=== PATIENT | male | born 1940 | race Caucasian/White ===

== ENCOUNTER 2018-03-07 04:27 | Inpatient (IN) ==
[2018-03-02 15:21] LABS: Appearance,Urine CLEAR; Bilirubin,Urine NEG (NEG); Color,Urine YELLOW; Glucose,Urine (UA) NEGATIVE (NEG); Leukocyte Esterase,Urine NEG /uL (NEG); Protein,Urine NEG (NEG); Specific Gravity,Urine 1.011 (1.000-1.035); Urine Blood NEG mg/dL (<0.03); Urobilinogen,Urine NEG (NEG)
[2018-03-02 15:52] LABS: Basophils # (Auto) 0 K/mcL (0.0-0.3); Basophils % (Auto) 0.1 % (0.0-2.0); Eosinophils # (Auto) 0 K/mcL (0.0-0.7); Eosinophils % (Auto) 0.2 % (0.0-7.0); Granulocytes % (Auto) 91.1 % (38.0-78.0); Lymphocytes # (Auto) 0.8 K/mcL (1.5-4.8); Mean Cell Volume 91.6 fL (80.0-100.0); Mean Corpuscular HGB Conc 33.7 g/dL (31.0-36.0); Mean Corpuscular Hemoglobin 30.9 pg (26.0-34.0); Monocytes # (Auto) 0.6 K/mcL (0.1-0.9); Monocytes % (Auto) 3.6 % (1.0-12.0); Platelet Count 467 K/mcL (140-440); RBC 4.45 M/mcL (4.50-5.90)
[2018-03-02 16:05] LABS: Blood Urea Nitrogen 32 mg/dl (8-23)
[2018-03-02 16:25] LABS: Estimated Average Glucose(eAG) 114 mg/dL; Hemoglobin A1C 5.6 % HGB (4.0-6.0)
[2018-03-07] MEDS ORDERED: HEPARIN 20,000 UNIT/ML VIAL IR ONE ×2 (06:57→11:49)
[2018-03-07] MEDS ORDERED: ceFAZolin 1 GM VIAL IV SCH ×2 (07:00→19:00)
[2018-03-07] MEDS ORDERED: CELECOXIB 200 MG CAPSULE PO SCH (07:00)
[2018-03-07] MEDS ORDERED: PREGABALIN 75 MG CAPSULE PO SCH (07:00)
[2018-03-07] MEDS ORDERED: oxyCODONE 10 MG TAB.ER.12H PO SCH (07:00)
[2018-03-07] MEDS ORDERED: IPRATROPIUM/ALBUTEROL 3 ML AMPUL.NEB NEB ONE (07:09)
[2018-03-07] MEDS ORDERED: 0.9 % SODIUM CHLORIDE 250 ML IV SCH (07:15)
[2018-03-07] MEDS ORDERED: PHENYLEPHRINE 10 MG/ML VIAL IV ONE (11:00)
[2018-03-07] MEDS ORDERED: PROPOFOL 200 MG/20 ML VIAL IV ONE (11:00)
[2018-03-07] MEDS ORDERED: LIDOCAINE HCL/PF 100 MG/5 ML SYRINGE IV ONE (11:00)
[2018-03-07] MEDS ORDERED: ePHEDrine 50 MG/ML AMPUL IV ONE (11:00)
[2018-03-07] MEDS ORDERED: MIDAZOLAM 2 MG/2 ML VIAL IV ONE (11:00)
[2018-03-07] MEDS ORDERED: GLYCOPYRROLATE 0.2 MG/ML VIAL IV ONE (11:00)
[2018-03-07] MEDS ORDERED: fentaNYL 100 MCG/2 ML VIAL IV ONE (11:00)
[2018-03-07] MEDS ORDERED: ONDANSETRON 4 MG/2 ML VIAL IV ONE (11:00)
[2018-03-07] MEDS ORDERED: KETAMINE 100 MG/ML ML IV ONE (11:00)
[2018-03-07] MEDS ORDERED: TRANEXAMIC ACID 1,000 MG/10 ML VIAL IV ONE ×2 (11:00→12:59)
[2018-03-07] MEDS ORDERED: HEPARIN 10,000 UNIT/ML VIAL IR ONE (11:51)
[2018-03-07] MEDS ORDERED: ONDANSETRON 4 MG/2 ML VIAL IV PRN ×2 (12:53→12:59)
[2018-03-07] MEDS ORDERED: MEPERIDINE 25 MG/ML SYRINGE IV PRN (12:53)
[2018-03-07] MEDS ORDERED: IPRATROPIUM/ALBUTEROL 3 ML AMPUL.NEB NEB PRN (12:53)
[2018-03-07] MEDS ORDERED: ACETAMINOPHEN 1,000 MG/100 ML BOTTLE IV ONE (12:53)
[2018-03-07] MEDS ORDERED: fentaNYL 100 MCG/2 ML VIAL IV PRN (12:53)
[2018-03-07] MEDS ORDERED: METHOCARBAMOL 1,000 MG/10 ML VIAL IV PRN (12:53)
[2018-03-07] MEDS ORDERED: ePHEDrine 50 MG/ML AMPUL IV PRN (12:53)
[2018-03-07] MEDS ORDERED: HYDROmorphone 2 MG/ML VIAL IV PRN ×2 (12:53→12:59)
[2018-03-07] MEDS ORDERED: FLEETS ADULT ENEMA PR PRN (12:59)
[2018-03-07] MEDS ORDERED: POLYETHYLENE GLYCOL 3350 17 GM PACKET PO PRN (12:59)
[2018-03-07] MEDS ORDERED: BISACODYL 10 MG SUPP.RECT PR PRN (12:59)
[2018-03-07] MEDS ORDERED: KETOROLAC 15 MG/ML VIAL IV PRN (12:59)
[2018-03-07] MEDS ORDERED: MAGNESIUM HYDROXIDE 30 ML ORAL.SUSP PO PRN (12:59)
[2018-03-07] MEDS ORDERED: oxyCODONE/APAP 5/325MG TABLET PO PRN (12:59)
[2018-03-07] MEDS ORDERED: BENZOCAINE/MENTHOL 1 LOZENGE PO PRN (12:59)
--- NOTE | 2018-03-07 12:59 | Brief Operative Note ---
Date of procedure: 03/07/18 Pre-op diagnosis: Right hip severe DJD Post-op diagnosis: same Procedure: Right anterior total hip arthroplasty Grafts/Implants: Yes (Depuy Actis 5 std stem, +1.5 36 delta head, 56 cup, neutral altrx liner) Anesthesia: GLMA Findings: arthritis Complications: none Surgeon: Bijan Amaral Pillowcase Maker: Alan Galvez Estimated blood loss (cc): 700 Specimens Removed/Pathology: none sent Condition: stable Disposition: PACU
[2018-03-07] MEDS ORDERED: LACTATED RINGERS 1,000 ML IV SCH (13:00)
--- NOTE | 2018-03-07 13:52 | XRay Report ---
CLINICAL INFORMATION: Right hip arthroplasty TECHNIQUE: 0.5 minutes intraoperative fluoroscopy utilized. Spot films obtained. IMPRESSION: Intraoperative fluoroscopy utilized by Dr. Amaral. Right total hip arthroplasty Interpreted and Authenticated by: Erik Drake 03/07/18
[2018-03-07] MEDS ORDERED: WARFARIN 5 MG TABLET PO SCH (14:00)
--- NOTE | 2018-03-07 14:22 | XRay Report ---
CLINICAL INFORMATION: Postsurgical follow-up TECHNIQUE: AP pelvis. AP and crosstable lateral right hip COMPARISON: None. FINDINGS: Status post right total hip arthroplasty. Femoral head and acetabular components are in anatomic positions. There is postsurgical soft tissue and intra-articular gas. IMPRESSION: Status post right total hip arthroplasty Interpreted and Authenticated by: Erik Drake 03/07/18
[2018-03-07] MEDS: 0.9 % SODIUM CHLORIDE 10 ML SYRINGE IV SCH ×2 (14:51→20:13)
[2018-03-07] MEDS: 0.9 % SODIUM CHLORIDE 1,000 ML IV SCH ×2 (15:13→22:25)
[2018-03-07] MEDS ORDERED: IRON POLYSACCHARIDE COMPLEX 150 MG CAPSULE PO SCH (21:00)
[2018-03-07] MEDS ORDERED: LISINOPRIL 10 MG TABLET PO SCH (21:00)
[2018-03-07] MEDS ORDERED: ASPIRIN 325 MG ENTERIC COATED TABLET PO SCH (21:00)
[2018-03-07] MEDS ORDERED: DOCUSATE SODIUM 100 MG CAPSULE PO SCH (21:00)
[2018-03-07] MEDS ORDERED: SENNOSIDES 1 TABLET PO SCH (21:00)
[2018-03-07] MEDS ORDERED: 0.9 % SODIUM CHLORIDE 500 ML IV ONE (23:59)
[2018-03-08] MEDS ORDERED: LACTATED RINGERS 500 ML IV ONE (01:07)
--- NOTE | 2018-03-08 01:43 | Internal Medicine Consult Note ---
Medical - CN: HPI - Data of Consult Consult date: 03/08/18 Requesting Physician: Bijan Amaral Primary Care Provider: Ryan Oliva - Consult Narrative Reason for consult: Hypotension History of present illness: Mr. Alas is a 77 year old M With history of atrial fibrillation interstitial lung disease chronic kidney disease diastolic heart failure total hip replacement today. Who during surgery had intermittent hypotensive episodes was given medication raise it also had significant blood loss. Blood pressures been soft since then with systolics as low 76 at near midnight. Given 500 cc bolus with improvement 89. Apparently patient was symptomatic when he got up and ambulate and became lightheaded. Heart rates been around 90 this evening. He denies any chest pain. Does have chronic cough and dyspnea which is unchanged. He felt relatively comfortable in bed but became weak and lightheaded when he was ambulating. Feels better now especially after given fluid boluses last, blood pressures 99 systolic over 70s. Review of Systems: Pertinent positives as above denies headache/fever/chills/nausea/vomiting/chest or abdominal pain/cough/dyspnea/diarrhea. 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) Hypertension (Chronic) Diastolic dysfunction without heart failure (Chronic) CKD (chronic kidney disease) (Chronic) Bradycardia (Chronic) Abnormal ECG (Chronic) Past Surgical History History of back surgery (Chronic ~1989) History of hip replacement (Chronic ~2001) History of tonsillectomy (Chronic ~1949) Family History Father Heart problem Social History former smoker no alcohol use no drug use retired Medical - CN: Meds Home Medications Medication Instructions Recorded Confirmed Type [id number]-[id number]-alg C-Mn 500 1 cap PO QDAY cap 06/20/16 03/02/18 History mg-400 mg capsule lisinopril 10 mg tablet 10 mg PO HS 06/20/16 03/02/18 History omega-3 fatty acids 2,800 mg PO QDAY 06/20/16 03/02/18 History Furosemide [Lasix] 40 mg PO DAILY 03/02/18 03/02/18 History Iron Polysaccharide Complex 150 mg PO BID 03/02/18 03/02/18 History [Ferrex 150] Omeprazole [PriLOSEC] 20 mg PO ACB 03/02/18 03/02/18 History Vitamin D3 500 unit PO DAILY 03/02/18 03/02/18 History Warfarin [Coumadin] 5 mg PO DAILY@1400 03/02/18 03/02/18 History Allergies Allergy/AdvReac Type Severity Reaction Status Date / Time No Known Drug Allergies Allergy Verified 07/04/16 13:39 Medical - CN: Exam - Constitutional Vitals: Temp Pulse Resp BP Pulse Ox 98.4 F 89 14 89/53 95 03/07/18 23:30 03/08/18 00:40 03/07/18 23:30 03/08/18 00:40 03/07/18 23:50 Exam: General: Alert, Awake, No acute Distress Eyes/N/T: EOMI, PEERL, DMM Head/Neck: neck supple, normocephalic atraumatic CV: irreg irreg, normal s1/s2 Pulm: Fine rales bilaterally, no wheezing/rhonchi Abd: soft, nontender, +BS x4, obese Ext: no clubbing/cyanosis/edema Neuro: Alert, no focal deficits, moves all extremities, CN 2-12 grossly intact, sensations intact b/l upper/lower Skin: warm/dry Medical - CN: Result - Labs CBC & Chem 7: 03/08/18 00:10 03/02/18 13:30 Labs: Short CBC 03/08/18 Range/Units 00:10 Hgb 9.9 L (13.5-16.5) g/dL Hct 30.2 L (41.0-55.0) % Medical - CN: A/P - Narrative A/P Narrative: A: *Hypotension: Likely secondary to blood loss intraoperative and underlying cardiac dysfunction with preload dependency * *History of diastolic CHF *PAF: follows with Dr. Bolden *h/o Bradycardia: wnl currently *CKD III: follows with [facility] *Interstitial lung disease and chronic MILLER: *Hypertension: on lisinopril and ?norvasc (listed on Dr. Matos but no other provider) * P: -IV fluid hydration -Monitor INR and H&H -Obtain echo results -Hold Lasix and lisinopril for now -Urinalysis with urine electrolytes and chem panel -Closely monitor I's&O and daily weight -monitor O2 sats closely -ppx: SCDs, warfarin per pharmacy
[2018-03-08] MEDS ORDERED: ONDANSETRON 4 MG/2 ML VIAL IV PRN (02:31)
[2018-03-08] MEDS ORDERED: oxyCODONE/APAP 5/325MG TABLET PO PRN (02:31)
[2018-03-08] MEDS ORDERED: KETOROLAC 15 MG/ML VIAL IV PRN (02:31)
[2018-03-08] MEDS ORDERED: BISACODYL 10 MG SUPP.RECT PR PRN (02:31)
[2018-03-08] MEDS ORDERED: 0.9 % SODIUM CHLORIDE 1,000 ML IV SCH ×2 (02:31→07:42)
[2018-03-08] MEDS ORDERED: POLYETHYLENE GLYCOL 3350 17 GM PACKET PO PRN (02:31)
[2018-03-08] MEDS ORDERED: HYDROmorphone 2 MG/ML VIAL IV PRN (02:31)
[2018-03-08] MEDS ORDERED: MAGNESIUM HYDROXIDE 30 ML ORAL.SUSP PO PRN (02:31)
[2018-03-08] MEDS ORDERED: BENZOCAINE/MENTHOL 1 LOZENGE PO PRN (02:31)
[2018-03-08] MEDS ORDERED: FLEETS ADULT ENEMA PR PRN (02:31)
[2018-03-08 02:52] LABS: ALT/SGPT 15 U/l (0-40); Albumin 2.7 gm/dL (3.2-5.2); Albumin/Globulin Ratio 1.3 (1.0-2.3); Alkaline Phosphatase 46 U/L (39-117); Bilirubin,Direct < 0.2 mg/dL (0.0-0.3); Blood Urea Nitrogen 29 mg/dl (8-23); Gamma Glutamyl Transpeptidase 18 U/L (8-61); Uric Acid 9.6 mg/dL (2.5-8.0)
[2018-03-08 02:53] LABS: Appearance,Urine CLEAR; Bilirubin,Urine NEG (NEG); Color,Urine YELLOW; Glucose,Urine (UA) NEGATIVE (NEG); Leukocyte Esterase,Urine NEG /uL (NEG); Protein,Urine NEG (NEG); Urine Blood NEG mg/dL (<0.03); Urobilinogen,Urine NEG (NEG)
[2018-03-08] MEDS ORDERED: ceFAZolin 1 GM VIAL IV SCH (03:00)
[2018-03-08] MEDS ORDERED: ceFAZolin 1 GM VIAL ONE (03:52)
[2018-03-08] MEDS: 0.9 % SODIUM CHLORIDE 10 ML SYRINGE IV SCH ×3 (05:09→21:27)
--- NOTE | 2018-03-08 07:28 | Orthopedic Progress Note ---
Orthopedics - Auxillary Note - Subjective Patient Information: Note initiated : 03/08/18 at 7:26 am Service Date, if different from initiated Date: [] Patient: Erik Alas 77 y/o M admitted on 03/07/18 for Right Total Hip Arthroplasty Anterior. Chief Complaint:No c/o. denies chest pain, SOB. bandages c/d/i nvi-distal Vital Signs Temp Pulse Resp BP BP Pulse Ox 03/08/18 05:12 81 106/63 99 03/08/18 04:00 98.0 F 81 14 91/60 97 03/08/18 01:40 98.1 F 79 16 99/57 96 03/08/18 00:40 89 89/53 03/07/18 23:50 91 H 76/55 95 03/07/18 23:30 98.4 F 94 H 14 78/50 90 03/07/18 19:29 98.0 F 86 14 81/56 92 03/07/18 18:10 91 H 101/59 91 03/07/18 16:36 79 106/67 99 03/07/18 16:06 75 100/57 100 03/07/18 15:36 79 89/59 98 03/07/18 15:21 77 104/62 91 03/07/18 15:06 75 100/51 97 03/07/18 14:51 75 120/72 97 03/07/18 14:36 75 120/72 97 03/07/18 14:23 99.0 F 82 14 108/58 97 03/07/18 14:15 84 14 106/57 97 03/07/18 14:00 82 14 107/47 97 03/07/18 13:45 81 14 83/69 96 03/07/18 13:30 85 12 91/45 100 03/07/18 13:25 92 H 17 107/42 100 03/07/18 13:20 96 H 20 120/46 92 03/07/18 13:15 100.5 F H 67 10 L 83/46 96 03/07/18 10:14 98.1 F 78 16 108/66 92 Intake and Output 03/07/18 03/08/18 03/08/18 21:59 05:59 13:59 Intake Total 2100 / 2100 Output Total 630 / 630 Balance 1470 / 1470 Intake: IV 900 / 900 Sodium Chloride 0.9% 1,000 ml @ 900 / 900 125 mls/hr IV .Q8H [facility] Rx#: [id number] Oral 1200 / 1200 Output: Urine Catheter Amount 550 / 550 Void Amount 80 / 80 Other: Meal Dinner Percent of Meal Consumed 100% Urine Appearance Clear Urine Color Dark Yellow Urine Odor Normal Weight 184 lb 8 oz Abnormal Lab Results 03/08/18 03/08/18 03/08/18 04:18 04:18 01:40 Hgb 8.6 L Hct 26.6 L PT 19.6 H INR 1.7 H BUN 29 H Creatinine 1.8 H Glucose 112 H Uric Acid 9.6 H Calcium 7.5 L Lactate Dehydrogenase 274 H Total Protein 4.8 L Albumin 2.7 L Globulin 2.1 L 03/08/18 03/07/18 03/07/18 00:10 16:50 05:05 Hgb 9.9 L Hct 30.2 L PT 18.3 H 20.2 H INR 1.5 H 1.7 H BUN Creatinine Glucose Uric Acid Calcium Lactate Dehydrogenase Total Protein Albumin Globulin s/p R KARLA-Stable mobilize with PT cont hospitalist management. tentative discharge today or tomorrow.
[2018-03-08] MEDS ORDERED: OMEPRAZOLE 20 MG CAPSULE PO SCH (07:30)
[2018-03-08] MEDS: OMEPRAZOLE 20 MG CAPSULE PO SCH (07:49)
[2018-03-08] MEDS: GLUCOSAMINE/CHONDROITIN SULF A 1 CAP CAPSULE PO SCH (08:06)
[2018-03-08] MEDS: DOCUSATE SODIUM 100 MG CAPSULE PO SCH ×2 (08:06→20:34)
[2018-03-08] MEDS: VITAMIN D3 1,000 UNIT TABLET PO SCH (08:06)
[2018-03-08] MEDS: FISH OIL 1,000 MG CAPSULE PO SCH (08:06)
[2018-03-08] MEDS: IRON POLYSACCHARIDE COMPLEX 150 MG CAPSULE PO SCH ×2 (08:07→20:34)
[2018-03-08] MEDS ORDERED: VITAMIN D3 1,000 UNIT TABLET PO SCH (09:00)
[2018-03-08] MEDS ORDERED: FISH OIL 1,000 MG CAPSULE PO SCH (09:00)
[2018-03-08] MEDS ORDERED: GLUCOSAMINE/CHONDROITIN SULF A 1 CAP CAPSULE PO SCH (09:00)
[2018-03-08] MEDS ORDERED: FUROSEMIDE 40 MG TABLET PO SCH (09:00)
[2018-03-08] MEDS ORDERED: WARFARIN 5 MG TABLET PO SCH (14:00)
[2018-03-08] MEDS ORDERED: SENNOSIDES 1 TABLET PO SCH (21:00)
[2018-03-09] MEDS: 0.9 % SODIUM CHLORIDE 10 ML SYRINGE IV SCH (05:27)
[2018-03-09 06:00] LABS: ALT/SGPT 9 U/l (0-40); Albumin 2.6 gm/dL (3.2-5.2); Albumin/Globulin Ratio 1.1 (1.0-2.3); Alkaline Phosphatase 53 U/L (39-117); Bilirubin,Direct < 0.2 mg/dL (0.0-0.3); Blood Urea Nitrogen 22 mg/dl (8-23); Gamma Glutamyl Transpeptidase 18 U/L (8-61); Uric Acid 8.1 mg/dL (2.5-8.0)
[2018-03-09] MEDS: OMEPRAZOLE 20 MG CAPSULE PO SCH (06:45)
--- NOTE | 2018-03-09 07:08 | Internal Med Progress Note ---
Medical - PN: Subj Patient information: Note initiated : 03/09/18 at 7:05 am Service Date, if different from initiated Date: [] Patient: Erik Alas 77 y/o M admitted on 03/07/18 for Right Total Hip Arthroplasty Anterior. Chief Complaint: [] Interval history: Mr. Alas is a 77 year old M With history of atrial fibrillation interstitial lung disease chronic kidney disease diastolic heart failure total hip replacement today. Who during surgery had intermittent hypotensive episodes was given medication raise it also had significant blood loss. Blood pressures been soft since then with systolics as low 76 at near midnight. Given 500 cc bolus with improvement 89. Apparently patient was symptomatic when he got up and ambulate and became lightheaded. Heart rates been around 90 this evening. He denies any chest pain. Does have chronic cough and dyspnea which is unchanged. He felt relatively comfortable in bed but became weak and lightheaded when he was ambulating. Feels better now especially after given fluid boluses last, blood pressures 99 systolic over 70s. 03/09 Has occasional cough denies shortness of breath out of the norm. No new complaints. Review of Systems: denies headache/fever/chills/nausea/vomiting/chest or abdominal pain/diarrhea. Otherwise see above. - Constitutional Vitals: Vital Signs Temp Pulse Resp BP Pulse Ox 99.3 F H 98 H 20 149/78 90 03/09/18 06:45 03/09/18 06:45 03/09/18 06:45 03/09/18 06:45 03/09/18 06:45 Period Temp Pulse Resp BP Sys/Chaparro Pulse Ox Last 24 Hr 97.8 F-99.3 F 70-105 14-20 95-149/58-78 90-99 Intake and Output 03/08/18 03/09/18 03/09/18 21:59 05:59 13:59 Intake Total 1900 / 1900 240 / 240 Output Total 150 / 150 600 / 600 Balance 1750 / 1750 -360 / -360 Weight 88.451 kg Intake & Output: Intake & Output 03/08/18 03/09/18 03/09/18 21:59 05:59 13:59 Intake Total 1900 / 1900 240 / 240 Output Total 150 / 150 600 / 600 Balance 1750 / 1750 -360 / -360 Weight 88.451 kg Intake: IV 1000 / 1000 Sodium Chloride 0.9% 1,000 ml @ 1000 / 1000 80 mls/hr IV .[id number] [facility] Rx#: [id number] Oral 900 / 900 240 / 240 Output: Void Amount 150 / 150 600 / 600 Other: Meal Dinner Percent of Meal Consumed 75% Feeding Ability Assist with Tray Set Up Exam: General: Alert, Awake, No acute Distress Eyes/N/T: EOMI, PEERL, Head/Neck: neck supple, CV: irreg irreg, normal s1/s2 Pulm: rales a little more course today bilaterally, no wheezing/rhonchi Abd: soft, nontender, +BS x4, obese Ext: no clubbing/cyanosis/edema Neuro: Alert, no focal deficits, moves all extremities, Skin: warm/dry Medical - PN: Obj Da - Labs CBC & Chem 7: 03/09/18 03:39 03/09/18 03:39 Labs: Abnormal Lab Results 03/09/18 03/09/18 03/09/18 03:39 03:39 03:39 Hgb 8.4 L Hct 25.2 L PT 24.2 H INR 2.2 H BUN Creatinine 1.6 H Glucose Uric Acid 8.1 H Calcium 7.9 L Phosphorus 2.5 L AST 40 H Lactate Dehydrogenase 293 H Total Protein 5.0 L Albumin 2.6 L Globulin 03/08/18 03/08/18 03/08/18 04:18 04:18 01:40 Hgb 8.6 L Hct 26.6 L PT 19.6 H INR 1.7 H BUN 29 H Creatinine 1.8 H Glucose 112 H Uric Acid 9.6 H Calcium 7.5 L Phosphorus AST Lactate Dehydrogenase 274 H Total Protein 4.8 L Albumin 2.7 L Globulin 2.1 L 03/08/18 03/07/18 03/07/18 00:10 16:50 05:05 Hgb 9.9 L Hct 30.2 L PT 18.3 H 20.2 H INR 1.5 H 1.7 H BUN Creatinine Glucose Uric Acid Calcium Phosphorus AST Lactate Dehydrogenase Total Protein Albumin Globulin Meds: Medications Bisacodyl (Dulcolax) 10 mg [place] Q2-3DAYS PRN PRN Reason: Constipation Docusate Sodium (Colace) 100 mg PO BID [facility] Last Admin: 03/08/18 20:34 Dose: 100 mg Fish Oil (Fish Oil) 2,000 mg PO DAILY [facility] Last Admin: 03/08/18 08:06 Dose: 2,000 mg Glucosamine/Chondroitin (Glucosamine-Chondroitin Cap) 1 cap PO DAILY [facility] Last Admin: 03/08/18 08:06 Dose: 1 cap Hydromorphone HCl (Dilaudid) 0 mg IV Q2HP PRN PRN Reason: PAIN LEVEL > 6 Ketorolac Tromethamine (Toradol) 15 mg IV Q6HP PRN PRN Reason: Pain Stop: 03/09/18 13:02 Magnesium Hydroxide (Milk Of Magnesia) 30 ml PO BIDP PRN PRN Reason: Constipation Omeprazole (Prilosec) 20 mg PO ACB [facility] Last Admin: 03/09/18 06:45 Dose: 20 mg Ondansetron HCl (Zofran) 4 mg IV Q4HP PRN PRN Reason: Nausea And Vomiting Oxycodone/Acetaminophen (Percocet 5-325 Mg) 0 tab PO Q4HP PRN PRN Reason: PAIN LEVEL 3-6 Polyethylene Glycol (Miralax) 17 gm PO DAILYP PRN PRN Reason: Constipation Polysaccharide Iron Complex (Ferrex 150) 150 mg PO BID [facility] Last Admin: 03/08/18 20:34 Dose: 150 mg Senna (Senokot) 2 tab PO HS [facility] Last Admin: 03/08/18 20:34 Dose: 2 tab Sodium Biphosphate/Sodium Phosphate (Fleets Adult) 1 dose [place] Q3-4DAYS PRN PRN Reason: Constipation Sodium Chloride (Saline Flush) 10 ml IV Q8 [facility] Last Admin: 03/09/18 05:27 Dose: 10 ml Throat Lozenges (Cepacol) 1 lozenge PO PRN PRN PRN Reason: Sore Throat Vitamin D (Vitamin D3) 500 unit PO DAILY [facility] Last Admin: 03/08/18 08:06 Dose: 500 unit Warfarin Sodium (Coumadin) 5 mg PO DAILY@1400 [facility] Last Admin: 03/08/18 13:33 Dose: 5 mg Medical - PN: A/P - Time Spent With Patient Total time spent is greater than 50% in coordination of care (as documented) at patient's floor/unit and/or counseling patient: - Narrative A/P Narrative: A: *Hypotension: Likely secondary to blood loss intraoperative and underlying cardiac dysfunction with preload dependency -resolved * *History of diastolic CHF -echo in 2017 with grade I diastolic dysfunction, although E/e 18. normal EF. *PAF: follows with Dr. Bolden *h/o Bradycardia: wnl currently *CKD III: follows with [facility] *Interstitial lung disease and chronic MILLER (uses NC 2L's@night): *Hypertension: on lisinopril and ?norvasc (listed on Dr. Matos but no other provider) *s/p R KARLA P: -will give dose of albumin/lasix this morning - -restart lisinopril outpt -ok for d/c after lunch from hospitalist standpoint -ppx: SCDs, warfarin per pharmacy Medical - PN: Qual - VTE Deep Vein Thrombosis/Pulmonary Embolism Present on Admission: No
[2018-03-09] MEDS ORDERED: ALBUMIN HUMAN 12.5 GM/50 ML BAG IV STA (08:24)
[2018-03-09] MEDS ORDERED: FUROSEMIDE 40 MG/4 ML VIAL IV STA (08:24)
[2018-03-09] MEDS: GLUCOSAMINE/CHONDROITIN SULF A 1 CAP CAPSULE PO SCH (08:38)
[2018-03-09] MEDS: FISH OIL 1,000 MG CAPSULE PO SCH (08:38)
[2018-03-09] MEDS: VITAMIN D3 1,000 UNIT TABLET PO SCH (08:38)
[2018-03-09] MEDS: DOCUSATE SODIUM 100 MG CAPSULE PO SCH (08:38)
--- NOTE | 2018-03-09 08:38 | Operative Note ---
DATE OF OPERATION: 03/07/2018 PREOPERATIVE DIAGNOSIS: Right hip severe osteoarthritis. POSTOPERATIVE DIAGNOSIS: Right hip severe osteoarthritis. PROCEDURE PERFORMED: Right anterior total hip arthroplasty placing a DePuy Actis size 5 standard offset femoral stem; a +1.5, 36 mm delta ceramic head ball with a 56 cup and a neutral AltrX liner. SURGEON: Bijan Amaral M.D. PIT MANAGER: Miguel Galvez PA-C. ANESTHESIA: General. DRAINS: None. SPECIMENS: Femoral head which was discarded. BLOOD LOSS: 700 mL. COMPLICATIONS: None. POSTOPERATIVE CONDITION: Stable. INDICATIONS FOR SURGERY: This is a 77-year-old male who has had longstanding worsening right hip pain. Radiographs showed [id number] arthritis. FINDINGS AT SURGERY: Severe arthritis. Post implantation showed satisfactory component position with near equalization of leg lengths. PROCEDURE IN DETAIL: The patient had been seen preoperatively. Informed consent had been obtained after discussion of risks and benefits of surgery. Risks including, but not limited to, bleeding, possibly requiring transfusion; infection, possibly requiring implant removal and prolonged IV antibiotics; injury to nerves, blood vessels, other surrounding structures; anesthetic risks; incomplete or no resolution of symptoms; leg length discrepancy; dislocation; fracture; DVT and pulmonary embolus risks; and the possibility of needing further revision joint surgery. He understood these risks and wished to proceed. The correct operative site was marked, and the patient was taken to the operating room and general anesthesia induced. The right hip and groin were then carefully prepped and draped in normal sterile fashion. A time-out was performed verifying patient name, operative site, and plan. Ioban was used to cover skin surface and then a standard anterior approach incision made with a scalpel through skin and subcutaneous tissue. Hemostasis was obtained with Bovie cautery. Careful blunt dissection was taken down onto the tensor fascia, and this was undermined circumferentially. A ring retractor was placed after Irrisept was irrigated. He did not have a clearly defined tensor fascia or muscle belly, so we dissected down as best as we could through this interval. We then coagulated and cut circumflex vessels and released vastus fascia distally. Anterior capsulectomy was performed and capsule releases taken out to the trochanters. We then placed a corkscrew in the femoral head. Osteotome was used under fluoro to identify our approximate neck cut trajectory. We made this high due to his leg being quite long from a previous total hip arthroplasty on the opposite side. We went ahead and cut the neck and removed the head. We then placed bone wax on the cut surface and then exposed the acetabulum. This was exposed circumferentially and labrum removed circumferentially. He did have some deficient bone posterior inferiorly of the acetabulum. We went ahead and removed soft tissue from the floor and then began reaming, directly medializing to the tear drop and then increasing reamer size and angle up to a 56. We had difficulty getting press fit and did not wish to keep increasing our cup size, so we went ahead and chose a three-hole cup. We irrigated the acetabulum with Irrisept, after a minute pulse lavaged with saline. We then impacted the cup, but could not get press fit, so I went ahead and drilled and placed a screw in the posterior superior quadrant, placed a second screw even more posterior. This gave us acceptable fixation. We then placed a center hole cover, and a neutral Altrx liner was carefully aligned and impacted. The tabs were verified to be flush seating throughout the circumference of the cup. We then removed traction and started trying to expose the proximal femur. This was quite challenging and took a fair amount of time, doing release along the medial and posterior neck, as well as out to the greater trochanter. He appeared to have a fairly prominent greater trochanter that would get wedged behind the acetabulum. Once we finally had adequate exposure, we began preparing the femur, first with a box osteotome and then an awl to identify trajectory. Rongeur and rasp were used to lateralize. We then began sequentially broaching. Once we got up to a 5 stem, we reduced the hip after placing a 1.5 head ball trial on a standard neck trial. AP pelvis was taken to verify neutral rotation and AP of the nonoperative and operative hip were overlaid verifying legs were only slightly short on the right side. We went ahead and redislocated. We removed the implant. Definitive stem was opened. The femoral canal was irrigated with Irrisept, after a minute pulse lavaged with saline. The stem was impacted, and a +1.5 head ball was opened. The stem was cleaned and dried and the head ball briskly impacted. The hip was reduced and final images taken and saved. Irrisept was irrigated, after a minute we pulse lavaged with saline. A #1 Vicryl was used to close the tensor fascial layer as best as possible. A ring retractor was removed. Irrisept was irrigated again, after a minute pulse lavaged, and then fat was tacked to fascia with Vicryl and 2-0 Monocryl for subcutaneous and cindy for skin. Xeroform and sterile dressing were applied. The patient was then awakened, extubated, and transferred to recovery in stable condition. FER:[email or web address] Job ID: [id number] Doc ID: [id number] Bijan Amaral MD
[2018-03-09] MEDS: IRON POLYSACCHARIDE COMPLEX 150 MG CAPSULE PO SCH (08:39)
--- NOTE | 2018-03-09 10:37 | Discharge Summary ---
Providers - Providers Patient information: Note initiated : 03/09/18 at 10:34 am Service Date, if different from initiated Date: [] Patient: Erik Alas 77 y/o M admitted on 03/07/18 for Right Total Hip Arthroplasty Anterior. Chief Complaint: [] Date of admission: 03/07/18 Discharge date: 03/09/18 Attending physician: Bijan Amaral Hospitalization Hospital course: Admitted post op for pain control. He was hyptensive after surgery so hospitalist was consulted. Patient was moved to step down bed, monitored, given IVF bolus. He progressed well and was kept a second night for observation. He was ready to discharge POD#2. Discharge diagnosis: s/p R total hip arthroplasty Procedures: R KARLA 03/07/18 Exam - Exam Clean and dry: Yes Weight bearing status: as tolerated Ortho Discharge - KARLA - Patient Instructions Diet: Regular Diet Activity: activity as tolerated, weight bearing as tolerated Total Hip Protocol: Follow activity instructions as provided by Physical Therapy. Dressing Care: May shower in 2 days, Aquacel Ag - leave on for 5 days Patient Education: Total Hip Replacement (DC), Hypotension (GEN) - Follow Up Plan Follow Up Appointments: Bijan Amaral MD [Physician] - Ryan Oliva MD [Primary Care Provider] - Disposition: Home, Self-Care Prognosis: Good Rehab Potential: Good - Orders For Discharge Additional Discharge Orders: Physical Therapy at Discharge - KARLA Location: None Selected Toilet Riser Discharge Order Location: None Selected Walker Location: None Selected Pending Studies Resuscitation Status Full Code Diet Regular Diet Start MonMar 07 1301 Docusate Sodium (Colace) 100 mg PO BID [facility] Last Admin: 03/09/18 08:38 Dose: 100 mg Admin: 03/08/18 20:34 Dose: 100 mg Admin: 03/08/18 08:06 Dose: 100 mg Fish Oil (Fish Oil) 2,000 mg PO DAILY [facility] Last Admin: 03/09/18 08:38 Dose: 2,000 mg Admin: 03/08/18 08:06 Dose: 2,000 mg Glucosamine/Chondroitin (Glucosamine-Chondroitin Cap) 1 cap PO DAILY [facility] Last Admin: 03/09/18 08:38 Dose: 1 cap Admin: 03/08/18 08:06 Dose: 1 cap Omeprazole (Prilosec) 20 mg PO ACB [facility] Last Admin: 12/21/18 06:45 Dose: 20 mg Admin: 03/08/18 07:49 Dose: 20 mg Polysaccharide Iron Complex (Ferrex 150) 150 mg PO BID [facility] Last Admin: 03/09/18 08:39 Dose: 150 mg Admin: 03/08/18 20:34 Dose: 150 mg Admin: 03/08/18 08:07 Dose: 150 mg Senna (Senokot) 2 tab PO HS [facility] Last Admin: 03/08/18 20:34 Dose: 2 tab Sodium Chloride (Saline Flush) 10 ml IV Q8 [facility] Last Admin: 03/09/18 05:27 Dose: 10 ml Admin: 03/08/18 21:27 Dose: 10 ml Admin: 03/08/18 13:55 Dose: Not Given Admin: 03/08/18 05:09 Dose: 10 ml Vitamin D (Vitamin D3) 500 unit PO DAILY [facility] Last Admin: 03/09/18 08:38 Dose: 500 unit Admin: 03/08/18 08:06 Dose: 500 unit Warfarin Sodium (Coumadin) 5 mg PO DAILY@1400 [facility] Last Admin: 03/08/18 13:33 Dose: 5 mg Shift Summary 03/09/18 04:29 Shift Summary by Melecio Fink PT complained of no pain, no dizziness. PT is up to the side of the bed to use the urinal, put out around 800 mls this shift. IV to right wrist saline locked. HR 90-110, will increases with activity, SR with a 1st degree and a LBBB, SBP have 120-130's. On 2l NC with sats in the 90's, He uses 2l at home while sleeping. PT may DC today. Verbal report to follow. 03/08/18 17:30 - Shift Summary by Gunjan Ivan [facility] Num: [id number] : 1940 Patient Age: 77 Patient was made TELE status last night d/t hypotension and dizziness. BP's have been stable, last at 114/69. Has an extensive cardiac hx including A-Fib and HTN, takes Coumadin. Has been 1 degree AV block, LBBB, with frequent PVC' s. Has denied pain all shift. Appetite intact. OOB with FWW, gait belt, and one assist. AV boots in bed. CMS intact. Voiding per urinal 25-100ml with PVR 350ml. 93% 1L/NC, wean off per MD. Requires oxygen during the night, at at home as well. Poss D/C home tomorrow with family. Bedside report to follow. Initialized on 03/09/18 04:29 - END OF NOTE
== END 2018-03-09 12:55 | disposition home or self-care (01) | DRG 470 ==
LOC: MEDSUR 04:27 → ICU 03-08 10:17
PROVIDERS: ADMIT Orthopaedic Surgery; ATTEND Orthopaedic Surgery
CPT/HCPCS: 73502; 97162; 99231; C1713; C1776; J0131; J0690; J1644; J1885; J1940; J2001; J2250; J2370; J2405; J3010; J7030; J7040; J7120; J7620; J7620-GY; P9047